=== PATIENT | male | born 1950 | race Caucasian/White ===

== ENCOUNTER → 2020-10-11 13:14 | Outpatient (CLI) | payer MEDICARE | END | disposition home or self-care (01) | LOC: D.US 13:14 | PROVIDERS: ATTEND Nurse Practitioner | DX: K40.90 Unilateral inguinal hernia, without obstruction or gangrene, not specified as recurrent (principal) ==

== ENCOUNTER → 2020-10-12 09:59 | Outpatient (CLI) | payer MEDICARE | END | disposition home or self-care (01) | LOC: D.CT 08:45 | PROVIDERS: ATTEND Nurse Practitioner | DX: K40.90 Unilateral inguinal hernia, without obstruction or gangrene, not specified as recurrent (principal) ==

== ENCOUNTER 2020-10-20 06:22 | Day surgery (SDC) | payer MEDICARE ==
[~2020-10-20] VITALS: Ht 193 cm; Wt 111.8 kg
[~2020-10-20 06:22] MED LIST: AMBIEN10 MG PO; CELEBREX200 MG PO; OMEPRAZOLE40 MG PO
[2020-10-20 06:57] LABS: ANION GAP 13.3 mmol/L (8-16); CALCIUM 8.9 mg/dL (8.5-10.1); CREATININE - SERUM 1.1 mg/dL (0.6-1.3); POTASSIUM - SERUM 4.3 mmol/L (3.5-5.1)
[2020-10-20 07:07] LABS: BASOPHILS 0.3 % (0-2); EOSINOPHILS 3.9 % (0-7); HEMATOCRIT 44.1 % (42.0-54.0); HEMOGLOBIN 14.7 g/dL (13.5-17.5); IMMATURE GRANULOCYTES 0.6 % (0-5); LYMPHOCYTES 44.8 % (15-50); MCH 30.4 pg (26.0-34.0); MCHC 33.3 g/dL (31.0-37.0); MCV 91.1 fL (80.0-100.0); MEAN PLATELET VOLUME 10.5 fL (7.4-10.4); MONOCYTES 8.7 % (2-11); NEUTROPHIL ABS# 1.49 10x3/uL (1.78-5.38); NEUTROPHILS 41.7 % (40-80); PLATELET COUNT 157 10x3/uL (130-400); RBC 4.84 10x6/uL (4.20-6.10); WBC 3.6 10x3/uL (4.8-10.8)
[2020-10-20 07:34] VITALS: BP 124/67; Ht 193 cm; Wt 111.8 kg
[2020-10-20] MEDS ORDERED: CELEBREX200 MG (07:46)
[2020-10-20] MEDS ORDERED: HYDROCODONE-AC1 EAC2 (07:47)
[2020-10-20] MEDS ORDERED: OMEPRAZOLE40 MG (07:47)
[2020-10-20] MEDS ORDERED: AMBIEN10 MG (07:48)
[2020-10-20] MEDS ORDERED: HYDROCODON-ACE1 EA10 PO (11:09)
--- NOTE | 2020-10-20 16:30 | NUR ---
RECHECKED PT'S B/P SINCE B/P HAS BEEN ELEVATING A LITTLE MORE WITH EACH CHECK. B/P NOW 181/97. PT DENIES JESUS OR DIZZINESS, STATES HE DOES NOT NORMALLY HAVE HIGH B/P AND DOES NOT TAKE ANY B/P MEDS AT HOME. PT SAYS HE IS FEELING "ANXIOUS" HAVING TO BE HERE SO LONG BEFORE BEING DISCHARGED HE HAD TO URINATE BEFORE GETTING TO GO HOME. CALLED DR HUNG AND INFORMED HIM OF THE ABOVE AND THAT PT RECEIVED 3 L OF LR IV IN ORDER TO HELP PT URINATE, AND THAT PT HAS URINATED. HE ASKED ABOUT PT'S HR- INFORMED 50-80'S. HE SAID HE IS OK FOR PT TO DISCHARGE HOME, PROBABLY WILL ELIMINATE EXTRA FLUID LATER AND WILL BE OK. NOTIFIED PT OF THIS AND ALSO INSTRUCTED PT AND SPOUSE THAT IF PT UNABLE TO URINATE LATER HE NEEDS TO GO TO ER. BOTH PT AND SPOUSE VOICED UNDERSTANDING.
--- NOTE | 2020-10-20 16:50 | NUR ---
DISCHARGED AMBULATORY, ACCOMPANIED BY THIS NURSE, TO POV WITH SPOUSE DRIVING. ALL BELONGINGS WITH PT/SPOUSE.
--- NOTE | 2020-10-24 12:40 | OP ---
PATIENT NAME: EDMAR OVALLE MEDICAL RECORD: [id number] :48 LOCATION:D.OPS ADMISSION DATE: SURGEON: PRATEEK HUNG MD DATE OF OPERATION: 10/20/2020 PREOPERATIVE DIAGNOSES: 1. Left inguinal hernia. 2. Right spigelian hernia. 3. Gout. POSTOPERATIVE DIAGNOSES: 1. Left inguinal hernia. 2. Right lower quadrant ventral incisional hernia. 3. Gout. PROCEDURE: 1. Left inguinal hernia repair with medium PHS mesh. 2. Diagnostic laparoscopy. 3. Right lower quadrant ventral incisional hernia repair without mesh. SURGEON: Prateek Hung MD DESCRIPTION OF PROCEDURE: The patient's abdomen and left groin were prepped and draped in sterile fashion. An oblique incision was made above the inguinal ligament on the left side. Electrocautery was used to dissect through the subcutaneous tissues down to the external oblique fascia. This fascia was opened up to the external ring using electrocautery. We elevated the spermatic cord and a [place] was then placed around it. The patient had 2 segments of nerve tissue, which were high ligated, most consistent with the ilioinguinal nerve. The patient did have a direct hernia sac that was freed up from the spermatic cord. Care was taken not to injure the cord structures. Once we had the hernia sac freed up from the structures, then it was ligated with a 3-0 silk and pushed back down into the abdominal cavity. An opening was made in the inguinal floor and I opened up the preperitoneal space of Retzius in all directions. A large PHS mesh was then cut down to a medium PHS size. This mesh was placed into the preperitoneal space of Retzius and then fanned out over the inguinal floor. This was sutured down on all sides using multiple interrupted 0 Vicryls. The wound was then irrigated out with normal saline. The external oblique fascia was closed with running 2-0 Vicryl. Mick's was closed with interrupted 3-0 Vicryl and the skin was closed with running subcutaneous 5-0 Monocryl. A 10 mL of 0.25% Marcaine with epinephrine was infused into the tissues around the incision. At this point, a Veress needle was inserted in the left upper quadrant after the abdomen was insufflated then a 5-mm trocar was placed in the left lateral abdomen. I could see the Veress needle and there was no sign of any injury to bowel or surrounding structures. As we inspected the abdominal cavity, we could see that there was a hernia defect present in the right lower quadrant immediately underlying a transverse incision in the right lower quadrant from what was likely an appendectomy. This hernia defect was only present on the internal components of the fascia. There was no bowel or any other structures present within it and this was approximately 2 cm or smaller in size. I went ahead and elected just to convert this to a small open procedure through the previous incision site. The lateral aspect of this transverse incision was opened up using sharp dissection and electrocautery was used to dissect through the subcutaneous tissues to the outer fascial layer. I went ahead and freed up the tissues all around, we could see some bulging OPERATIVE REPORT [id number] EDMAR OVALLE underlying this fascia. The fascia was opened transversely and we entered the peritoneal cavity through the hernia sac. This hernia sac was dissected down on all sides and we scored the peritoneum overlying the fascial tissue. The internal layer of fascia was then closed with a running 0 Prolene. The external layer of fascia was then closed with another running 0 Prolene. There was good approximation of the tissue. The wound was then irrigated out with normal saline. The Mick's fascia was closed with interrupted 3-0 Vicryl and the skin was closed with running subcutaneous 5-0 Monocryl. A 10 mL of 0.25% Marcaine with epinephrine was infused into the surrounding tissues and the two wounds were dressed appropriately. COMPLICATIONS: None. CONDITION: Stable. ANESTHESIA: General endotracheal and local. BLOOD LOSS: Minimal. TRANSINT:[id number] Voice Confirmation ID: [id number] DOCUMENT ID: [id number] PRATEEK HUNG MD at 1240 CC: NOLAN PALMER [id number] DICTATION DATE: 10/20/20 1116 [employer]AL[employer] ASSUR[employer] SPECIALIST: 10/20/20 1135 [facility] 10/20/20 [id number] [place] [address]
== END 2020-10-20 16:50 | disposition home or self-care (01) ==
LOC: D.OPS 06:22
PROVIDERS: ATTEND Surgery
DX: K40.90 Unilateral inguinal hernia, without obstruction or gangrene, not specified as recurrent (principal); K43.6 Other and unspecified ventral hernia with obstruction, without gangrene; M10.9 Gout, unspecified